=== PATIENT | male | born 1960 | race Caucasian/White ===

== ENCOUNTER 2016-06-26 10:42 | Emergency (ER) | payer OTHER ==
[~2016-06-26] VITALS: Ht 172.7 cm; Wt 105.0 kg
[~2016-06-26 10:42] MED LIST: ASPI-1061 PO; HYDR-3965 PO; LISI-622 PO; METO-323 PO; NAPR250T2 PO; OMEP10CA2 PO; SIMV40TA5 PO; TICA90TA PO
[2016-06-26 10:56] LABS: GLUCOSE,POINT OF CARE 152 MG/DL (70-110)
[2016-06-26 13:45] VITALS: BP 138/79
[2016-07-11] MEDS ORDERED: DOXY100C PO (08:39)
[2016-07-11] MEDS ORDERED: CLOP75 PO (08:39)
[2016-07-11] MEDS ORDERED: BACTDSB PO (08:39)
[2016-07-11] MEDS ORDERED: CEPH500 PO (08:39)
[2016-07-18] MEDS ORDERED: DOXY100C PO (13:38)
[2016-07-18] MEDS ORDERED: RIFA300 PO (13:38)
== END 2016-06-26 14:06 | disposition home or self-care (01) ==
LOC: EMS 10:55
DX: L60.0 Ingrowing nail (principal); I25.2 Old myocardial infarction; F15.90 Other stimulant use, unspecified, uncomplicated; Z79.82 Long term (current) use of aspirin
CPT/HCPCS: 82962; 99284

== ENCOUNTER → 2016-07-11 | Outpatient (CLI) | payer OTHER ==
[~2016-07-11] VITALS: Ht 175.3 cm; Wt 109.5 kg
[~2016-07-11] MED LIST changes: +ASPI-1093 PO; +ASPI81 PO; +BACTDSB PO; +CEPH500 PO; +CLOP75 PO; +DOXY100C PO; +IBUPROFEN 200 MG TABLET PO ONE; +LIDOCAINE HCL 4% 50 ML SOLUTION TP ONE; +LISI-661 PO; +METO-325 PO; +METO50 PO; +NYSTATIN 15 GM POWDER BOTTLE TP ONE; +RIFA300 PO; +SIMV-261 PO; +TETRACAINE/BENZOCAINE/BUTAMBEN 32 GM GEL TP ONE
[2016-07-11 08:26] VITALS: BP 104/61
== END | disposition home or self-care (01) ==
LOC: HBOWC 07:26
PROVIDERS: ATTEND Emergency Medicine
DX: T81.4XXD Infection following a procedure, subsequent encounter (principal); L97.821 Non-pressure chronic ulcer of other part of left lower leg limited to breakdown of skin; I10 Essential (primary) hypertension; I25.10 Atherosclerotic heart disease of native coronary artery without angina pectoris; E66.9 Obesity, unspecified; I25.2 Old myocardial infarction; M19.90 Unspecified osteoarthritis, unspecified site; Z87.891 Personal history of nicotine dependence; Z72.89 Other problems related to lifestyle; Y83.8 Other surgical procedures as the cause of abnormal reaction of the patient, or of later complication, without mention of misadventure at the time of the procedure
CPT/HCPCS: 11042

== ENCOUNTER → 2016-07-24 | Outpatient (CLI) | payer OTHER ==
[~2016-07-24] MED LIST changes: -BACTDSB PO; -CEPH500 PO; -HYDR-3965 PO; -IBUPROFEN 200 MG TABLET PO ONE; -LIDOCAINE HCL 4% 50 ML SOLUTION TP ONE; -NAPR250T2 PO; -NYSTATIN 15 GM POWDER BOTTLE TP ONE; -OMEP10CA2 PO; -TETRACAINE/BENZOCAINE/BUTAMBEN 32 GM GEL TP ONE; -TICA90TA PO
[2016-07-24 15:04] VITALS: BP 109/54
== END | disposition home or self-care (01) ==
LOC: HBOWC 14:45
PROVIDERS: ATTEND Emergency Medicine Undersea and Hyperbaric Medicine
DX: L97.821 Non-pressure chronic ulcer of other part of left lower leg limited to breakdown of skin (principal); L03.032 Cellulitis of left toe; B95.62 Methicillin resistant Staphylococcus aureus infection as the cause of diseases classified elsewhere; I48.91 Unspecified atrial fibrillation; B35.1 Tinea unguium; I10 Essential (primary) hypertension; E66.9 Obesity, unspecified; I25.2 Old myocardial infarction; M19.90 Unspecified osteoarthritis, unspecified site; Z87.891 Personal history of nicotine dependence; Z72.89 Other problems related to lifestyle
CPT/HCPCS: 11042

== ENCOUNTER 2016-08-07 08:54 | Inpatient (IN) | payer OTHER ==
[~2016-08-07] VITALS: Ht 172.7 cm; Wt 105.0 kg
[~2016-08-07 08:54] MED LIST changes: -ASPI-1093 PO; -ASPI81 PO; -LISI-661 PO; -METO-325 PO; -METO50 PO; -SIMV-261 PO
[2016-08-07 09:45] LABS: BASOPHILS % (AUTO) 0.8 % (0.0-2.0); EOSINOPHILS % (AUTO) 5.8 % (1.0-6.0); HEMATOCRIT 38.2 % (41-53); HEMOGLOBIN 12.2 g/dL (13.5-17.5); LYMPHOCYTES # (AUTO) 1.6 K/uL (1.0-4.8); LYMPHOCYTES % (AUTO) 19.9 % (22.0-44.0); MEAN CORPUSCULAR HEMOGLOBIN 27.3 pg (26.0-34.0); MEAN CORPUSCULAR VOLUME 85 fL (80-100); MONOCYTES # (AUTO) 0.5 K/uL (0.1-1.0); MONOCYTES % (AUTO) 6.6 % (2.0-9.0); NEUTROPHILS # (AUTO) 5.4 K/uL (1.8-7.7); NEUTROPHILS % (AUTO) 66.9 % (40.0-70.0); PLATELET COUNT (AUTO) 426 K/uL (150-450); RED BLOOD CELL COUNT(AUTO) 4.49 MIL/uL (4.50-5.90); WHITE BLOOD COUNT (AUTO) 8.1 K/uL (4.5-11.0)
[2016-08-07 09:56] LABS: ANION GAP 11 mmol/L (8-16); CALCIUM, TOTAL 8.8 mg/dL (8.8-10.5); CARBON DIOXIDE 26 mmol/L (22-29); CHLORIDE 99 mmol/L (98-107); CREATININE 0.82 mg/dL (0.60-1.30); GLOMERULAR FILTR. RATE CALC > 60 mL/min (>60); POTASSIUM 3.7 mmol/L (3.5-5.1); SODIUM SERUM 136 mmol/L (136-145); UREA NITROGEN, BLOOD 11 mg/dL (7-18)
[2016-08-07 10:00] LABS: INR 1.1 (0.9-1.1); PROTHROMBIN TIME 11.3 SEC (9.4-11.6)
[2016-08-07 10:11] LABS: B-TYPE NATRIURETIC PEPTIDE 7 pg/mL (0-100)
[2016-08-07] MEDS ORDERED: ASPIRIN 325 MG EC TABLET PO ONE (10:15)
[2016-08-07] MEDS ORDERED: NITROGLYCERIN 2% (1 GM=INCH) PACKET TP ONE (10:15)
[2016-08-07 10:20] LABS: ALANINE AMINOTRANSFERASE 17 U/L (12-78); ALBUMIN 3.3 g/dL (3.4-5.0); ASPARTATE AMINOTRANSFERASE 16 U/L (15-37); BILIRUBIN,TOTAL 0.7 mg/dL (0.1-1.0); CREATINE KINASE MB 0.5 ng/mL (0-5); CREATINE KINASE, TOTAL 104 U/L (39-308); TOTAL PROTEIN, SERUM 8.3 g/dL (6.4-8.2)
[2016-08-07 11:57] LABS: ADD UA MICROSCOPIC NO; APPEARANCE,URINE CLEAR (CLEAR); GLUCOSE, URINE (UA) NEGATIVE (NEGATIVE); KETONES,URINE NEGATIVE (NEGATIVE); LEUKOCYTE ESTERASE ,URINE NEGATIVE (NEGATIVE); OCCULT BLOOD,URINE NEGATIVE (NEGATIVE); PH,URINE 5.5 (5.0-8.0); PROTEIN,URINE NEGATIVE (NEGATIVE)
[2016-08-07] MEDS ORDERED: LISI-661 PO (12:57)
[2016-08-07] MEDS ORDERED: ONDANSETRON HCL 4 MG/2 ML VIAL IVP PRN (13:00)
[2016-08-07] MEDS ORDERED: ACETAMINOPHEN 325 MG TABLET PO PRN (13:00)
[2016-08-07] MEDS ORDERED: 0.9% SODIUM CHLORIDE 10 ML SYRINGE IVP PRN (13:00)
[2016-08-07 15:43] VITALS: BP 117/70
[2016-08-07 19:17] VITALS: BP 100/59
[2016-08-08] VITALS (14 sets, daily range): BP systolic 88–161; BP diastolic 58–89
[2016-08-08] MEDS ORDERED: ZOLPIDEM TARTRATE 5 MG TABLET PO PRN (01:45)
[2016-08-08] MEDS ORDERED: HYDROCODONE/ACETAMINOPHEN 5-325 MG TABLET PO PRN (01:45)
[2016-08-08] MEDS ORDERED: BISACODYL 10 MG RECTAL RECTAL SUPPOSITORY PR PRN (01:45)
[2016-08-08] MEDS ORDERED: ONDANSETRON HCL 4 MG/2 ML VIAL IVP PRN (01:45)
[2016-08-08] MEDS ORDERED: MORPHINE SULFATE 2 MG/ML SYRINGE IVP PRN (01:45)
[2016-08-08] MEDS ORDERED: ACETAMINOPHEN 325 MG TABLET PO PRN (01:45)
[2016-08-08] MEDS ORDERED: MAGNESIUM HYDROXIDE SUSPENSION 30 ML UDCUP PO PRN (01:45)
[2016-08-08] MEDS ORDERED: ALBUTEROL SULFATE 2.5 MG/0.5 ML NEB SOLUTION NEB PRN (01:45)
[2016-08-08] MEDS ORDERED: IPRATROPIUM BROMIDE 0.5 MG/2.5 ML NEB SOLUTION NEB PRN (01:45)
[2016-08-08] MEDS: NITROGLYCERIN 2% (1 GM=INCH) PACKET TP SCH ×3 (05:21→18:00)
[2016-08-08] MEDS: HEPARIN SODIUM,PORCINE 5,000 UNITS/ML VIAL SQ SCH ×2 (07:43→16:00)
[2016-08-08] MEDS ORDERED: LANSOPRAZOLE 30 MG SOLUBLE TABLET PO SCH (09:00)
[2016-08-08] MEDS ORDERED: CLOPIDOGREL BISULFATE 75 MG TABLET PO SCH (09:00)
[2016-08-08] MEDS ORDERED: DOCUSATE SODIUM 100 MG CAPSULE PO SCH (09:00)
[2016-08-08] MEDS ORDERED: ASPIRIN 81 MG CHEWABLE TABLET PO SCH (09:00)
[2016-08-08] MEDS ORDERED: LISINOPRIL 10 MG TABLET PO SCH (09:00)
[2016-08-08] MEDS ORDERED: PANTOPRAZOLE SODIUM 40 MG DR TABLET PO SCH (09:00)
[2016-08-08] MEDS ORDERED: LIDOCAINE HCL/PF 1% 30 ML VIAL ONE (11:49)
[2016-08-08] MEDS ORDERED: SODIUM BICARBONATE 50 MEQ/50 ML VIAL ONE (11:49)
[2016-08-08] MEDS ORDERED: HEPARIN SODIUM 1000 UNITS/NS 1,000 ML ONE (11:49)
[2016-08-08] MEDS ORDERED: IOHEXOL 300 MG/ML 150 ML VIAL ONE (11:49)
[2016-08-08] MEDS ORDERED: HEPARIN SODIUM,PORCINE 1,000 UNITS/ML 10 ML VIAL ONE (11:59)
[2016-08-08] MEDS ORDERED: IOHEXOL 300 MG/ML 100 ML VIAL ONE (11:59)
[2016-08-08] MEDS ORDERED: FentaNYL CITRATE-PF 100 MCG/2 ML VIAL ONE (12:00)
[2016-08-08] MEDS ORDERED: MIDAZOLAM HCL 2 MG/2 ML VIAL ONE (12:01)
[2016-08-08] MEDS ORDERED: VERAPAMIL HCL 2.5 MG/ML 2 ML VIAL ONE (12:01)
[2016-08-08] MEDS ORDERED: NITROGLYCERIN 50 MG/D5% WATER 0 ML ONE (12:01)
[2016-08-08] MEDS ORDERED: SODIUM CHLORIDE 0.9% 500 ML IV ONE (12:41)
[2016-08-08] MEDS ORDERED: MIDAZOLAM HCL 2 MG/2 ML VIAL IVP ONE (12:41)
[2016-08-08] MEDS ORDERED: FentaNYL CITRATE-PF 100 MCG/2 ML VIAL IVP ONE (12:41)
[2016-08-08] MEDS ORDERED: LIDOCAINE 1% 30 ML/SOD BICARB 8.4% 4 ML SQ ONE (12:43)
[2016-08-08] MEDS ORDERED: HEPARIN SODIUM 2,000 UNITS in HEPARIN SODIUM 1000 UNITS/NS 1,000 ML IARTER ONE (12:44)
[2016-08-08] MEDS ORDERED: IOHEXOL 300 MG/ML 100 ML VIAL IARTER ONE (12:46)
[2016-08-08] MEDS ORDERED: ASPI81 PO (17:36)
[2016-08-08] MEDS ORDERED: CLOP75 PO (17:36)
[2016-08-08] MEDS ORDERED: METO-325 PO (17:36)
[2016-08-08] MEDS ORDERED: SIMVASTATIN 40 MG TABLET PO SCH (21:00)
[2016-08-08] MEDS ORDERED: METOPROLOL SUCCINATE 50 MG ER TABLET PO SCH (21:00)
== END 2016-08-08 19:00 | disposition home or self-care (01) | DRG 192 ==
LOC: EMS 08:56 → 5S 14:13 → EMS 14:19 → 5N 17:20
PROVIDERS: ADMIT Hospitalist; ATTEND Internal Medicine Cardiovascular Disease
PROC: B2151ZZ Fluoroscopy of Left Heart using Low Osmolar Contrast (ICD-10-PCS; principal; 2016-08-08)
PROC: 4A023N7 Measurement of Cardiac Sampling and Pressure, Left Heart, Percutaneous Approach (ICD-10-PCS; 2016-08-08)
PROC: B2111ZZ Fluoroscopy of Multiple Coronary Arteries using Low Osmolar Contrast (ICD-10-PCS; 2016-08-08)
DX: I25.110 Atherosclerotic heart disease of native coronary artery with unstable angina pectoris (principal); I10 Essential (primary) hypertension; M06.9 Rheumatoid arthritis, unspecified; F32.9 Major depressive disorder, single episode, unspecified; I25.2 Old myocardial infarction; Z98.890 Other specified postprocedural states; Z88.8 Allergy status to other drugs, medicaments and biological substances
CPT/HCPCS: 93005; 93306; 99285; G0480; J1644; J2250; J3010; J3490; Q9967

== ENCOUNTER → 2016-08-11 | Outpatient (CLI) | payer OTHER ==
[~2016-08-11] MED LIST changes: -ASPI-1061 PO; +ASPI81 PO; -DOXY100C PO; -LISI-622 PO; +LISI-661 PO; -METO-323 PO; +METO-325 PO; -RIFA300 PO
[2016-08-11 14:43] VITALS: BP 119/78
== END | disposition home or self-care (01) ==
LOC: HBOWC 12:53
PROVIDERS: ATTEND Emergency Medicine
DX: L97.821 Non-pressure chronic ulcer of other part of left lower leg limited to breakdown of skin (principal); I10 Essential (primary) hypertension; F32.9 Major depressive disorder, single episode, unspecified; I25.2 Old myocardial infarction; M06.9 Rheumatoid arthritis, unspecified; I48.91 Unspecified atrial fibrillation; E66.9 Obesity, unspecified; Z87.891 Personal history of nicotine dependence
CPT/HCPCS: 97597

== ENCOUNTER → 2016-08-25 | Outpatient (CLI) | payer OTHER ==
[~2016-08-25] MED LIST changes: +ASPI-1093 PO; +METO50 PO; +SIMV-261 PO
[2016-08-25 10:58] VITALS: BP 121/71
== END | disposition home or self-care (01) ==
LOC: HBOWC 09:37
PROVIDERS: ATTEND Emergency Medicine
DX: L97.821 Non-pressure chronic ulcer of other part of left lower leg limited to breakdown of skin (principal); B35.1 Tinea unguium; F15.10 Other stimulant abuse, uncomplicated; B95.62 Methicillin resistant Staphylococcus aureus infection as the cause of diseases classified elsewhere; M19.90 Unspecified osteoarthritis, unspecified site; I10 Essential (primary) hypertension; F32.89 Other specified depressive episodes; I25.2 Old myocardial infarction; I48.91 Unspecified atrial fibrillation; Z87.891 Personal history of nicotine dependence
CPT/HCPCS: 97597

== ENCOUNTER → 2016-09-08 | Outpatient (CLI) | payer OTHER ==
[2016-09-08 11:49] VITALS: BP 102/59
== END | disposition home or self-care (01) ==
LOC: HBOWC 10:04
PROVIDERS: ATTEND Emergency Medicine
DX: L97.821 Non-pressure chronic ulcer of other part of left lower leg limited to breakdown of skin (principal); I25.2 Old myocardial infarction; M06.9 Rheumatoid arthritis, unspecified; I10 Essential (primary) hypertension; B35.1 Tinea unguium; I48.91 Unspecified atrial fibrillation; E66.9 Obesity, unspecified; F32.9 Major depressive disorder, single episode, unspecified; I25.10 Atherosclerotic heart disease of native coronary artery without angina pectoris; Z87.891 Personal history of nicotine dependence; Z72.89 Other problems related to lifestyle
CPT/HCPCS: 11720; 97597

== ENCOUNTER → 2016-09-25 | Outpatient (CLI) | payer OTHER ==
[~2016-09-25] MED LIST changes: -ASPI-1093 PO; -METO50 PO; -SIMV-261 PO
[2016-09-25 08:20] VITALS: BP 111/72
== END | disposition home or self-care (01) ==
LOC: HBOWC 07:59
PROVIDERS: ATTEND Emergency Medicine
DX: L97.821 Non-pressure chronic ulcer of other part of left lower leg limited to breakdown of skin (principal); F32.9 Major depressive disorder, single episode, unspecified; E66.9 Obesity, unspecified; I25.2 Old myocardial infarction; M06.9 Rheumatoid arthritis, unspecified; B35.1 Tinea unguium; I48.91 Unspecified atrial fibrillation; I10 Essential (primary) hypertension; Z72.89 Other problems related to lifestyle; Z86.14 Personal history of Methicillin resistant Staphylococcus aureus infection
CPT/HCPCS: 97597

== ENCOUNTER 2016-10-05 17:54 | Emergency (ER) | payer OTHER ==
[~2016-10-05] VITALS: Ht 172.7 cm; Wt 113.6 kg
[2016-10-05 18:45] VITALS: BP 132/80
== END 2016-10-05 19:27 | disposition home or self-care (01) ==
LOC: EMS 17:55
DX: L73.9 Follicular disorder, unspecified (principal); I25.2 Old myocardial infarction; I51.9 Heart disease, unspecified; F15.90 Other stimulant use, unspecified, uncomplicated
CPT/HCPCS: 99281

== ENCOUNTER → 2016-10-10 | Outpatient (CLI) | payer OTHER ==
[~2016-10-10] MED LIST changes: +ASPI-1093 PO; +METO50 PO; +SIMV-261 PO
[2016-10-10 08:23] VITALS: BP 140/70
== END | disposition home or self-care (01) ==
LOC: HBOWC 08:04
PROVIDERS: ATTEND Emergency Medicine Undersea and Hyperbaric Medicine
DX: L97.821 Non-pressure chronic ulcer of other part of left lower leg limited to breakdown of skin (principal); F15.10 Other stimulant abuse, uncomplicated; M86.60 Other chronic osteomyelitis, unspecified site; I25.2 Old myocardial infarction; I11.9 Hypertensive heart disease without heart failure; F32.9 Major depressive disorder, single episode, unspecified; E66.9 Obesity, unspecified; M06.9 Rheumatoid arthritis, unspecified; I48.91 Unspecified atrial fibrillation; M19.90 Unspecified osteoarthritis, unspecified site; Z86.14 Personal history of Methicillin resistant Staphylococcus aureus infection; Z72.89 Other problems related to lifestyle; Z87.891 Personal history of nicotine dependence
CPT/HCPCS: 97597

== ENCOUNTER 2016-10-13 07:03 | Emergency (ER) | payer OTHER ==
[~2016-10-13] VITALS: Ht 172.7 cm; Wt 114.5 kg
[~2016-10-13 07:03] MED LIST changes: -ASPI-1093 PO; -METO50 PO; -SIMV-261 PO
[2016-10-13] MEDS ORDERED: SIMV-261 PO (07:47)
[2016-10-13] MEDS ORDERED: ASPI-1093 PO (07:47)
[2016-10-13] MEDS ORDERED: LISI-661 PO (07:47)
[2016-10-13] MEDS ORDERED: CLOP75 PO (07:47)
[2016-10-13] MEDS ORDERED: METO50 PO (07:47)
[2016-10-13] MEDS ORDERED: LIDOCAINE HCL BUFFERED 1% 20 ML VIAL INJ ONE (08:15)
[2016-10-13 08:22] LABS: BASOPHILS % (AUTO) 0.3 % (0.0-2.0); EOSINOPHILS % (AUTO) 4.3 % (1.0-6.0); HEMATOCRIT 38.7 % (41-53); HEMOGLOBIN 12.1 g/dL (13.5-17.5); LYMPHOCYTES # (AUTO) 1.7 K/uL (1.0-4.8); LYMPHOCYTES % (AUTO) 16.5 % (22.0-44.0); MEAN CORPUSCULAR HEMOGLOBIN 25.9 pg (26.0-34.0); MEAN CORPUSCULAR HGB CONC 31.3 G/dL (31.0-37.0); MEAN CORPUSCULAR VOLUME 83 fL (80-100); MONOCYTES # (AUTO) 0.6 K/uL (0.1-1.0); MONOCYTES % (AUTO) 6.2 % (2.0-9.0); NEUTROPHILS # (AUTO) 7.3 K/uL (1.8-7.7); NEUTROPHILS % (AUTO) 72.7 % (40.0-70.0); PLATELET COUNT (AUTO) 404 K/uL (150-450); RED BLOOD CELL COUNT(AUTO) 4.68 MIL/uL (4.50-5.90); RED CELL DISTRIBUTION WIDTH 15.3 % (11.5-14.5); WHITE BLOOD COUNT (AUTO) 10.1 K/uL (4.5-11.0)
[2016-10-13] MEDS ORDERED: SULFAMETHOX/TRIMETH DS 800-160 MG/TABLET PO ONE (12:15)
[2016-10-13 12:27] VITALS: BP 128/70
== END 2016-10-13 12:38 | disposition home or self-care (01) ==
LOC: EMS 07:10
DX: S81.802A Unspecified open wound, left lower leg, initial encounter (principal); F17.210 Nicotine dependence, cigarettes, uncomplicated; F32.9 Major depressive disorder, single episode, unspecified; I25.2 Old myocardial infarction; Z79.899 Other long term (current) drug therapy; X58.XXXA Exposure to other specified factors, initial encounter; Y93.89 Activity, other specified; Y92.9 Unspecified place or not applicable; Y99.9 Unspecified external cause status
CPT/HCPCS: 36415; 85025; 96372; 99283; J3490; 99284

== ENCOUNTER → 2016-10-24 | Outpatient (CLI) | payer OTHER ==
[~2016-10-24] MED LIST changes: +ASPI-1093 PO; -ASPI81 PO; -METO-325 PO; +METO50 PO; +SIMV-261 PO; -SIMV40TA5 PO
[2016-10-24 15:12] VITALS: BP 102/46
== END | disposition home or self-care (01) ==
LOC: HBOWC 12:49
PROVIDERS: ATTEND Emergency Medicine
DX: L97.821 Non-pressure chronic ulcer of other part of left lower leg limited to breakdown of skin (principal); I25.2 Old myocardial infarction; I25.10 Atherosclerotic heart disease of native coronary artery without angina pectoris; E66.9 Obesity, unspecified; I11.0 Hypertensive heart disease with heart failure; I50.9 Heart failure, unspecified; I48.91 Unspecified atrial fibrillation; M06.9 Rheumatoid arthritis, unspecified; M86.68 Other chronic osteomyelitis, other site; Z87.891 Personal history of nicotine dependence; Z72.89 Other problems related to lifestyle
CPT/HCPCS: 97597

== ENCOUNTER 2017-08-10 09:14 | Emergency (ER) | payer MEDICAID, OTHER ==
[~2017-08-10] VITALS: Ht 175.3 cm; Wt 113.6 kg
[~2017-08-10 09:14] MED LIST changes: -ASPI-1093 PO; +ASPI-1182 PO; +BACL10TA PO
[2017-08-10 11:04] LABS: EOSINOPHILS % (AUTO) 3.2 % (1.0-6.0); HEMATOCRIT 39.2 % (41-53); LYMPHOCYTES # (AUTO) 1.7 K/uL (1.0-4.8); LYMPHOCYTES % (AUTO) 17.7 % (22.0-44.0); MEAN CORPUSCULAR HEMOGLOBIN 25.6 pg (26.0-34.0); MEAN CORPUSCULAR HGB CONC 33.1 G/dL (31.0-37.0); MEAN CORPUSCULAR VOLUME 78 fL (80-100); MONOCYTES # (AUTO) 0.9 K/uL (0.1-1.0); MONOCYTES % (AUTO) 8.8 % (2.0-9.0); NEUTROPHILS # (AUTO) 6.7 K/uL (1.8-7.7); NEUTROPHILS % (AUTO) 69.3 % (40.0-70.0); PLATELET COUNT (AUTO) 407 K/uL (150-450); RED BLOOD CELL COUNT(AUTO) 5.05 MIL/uL (4.50-5.90); RED CELL DISTRIBUTION WIDTH 17.9 % (11.5-14.5)
[2017-08-10 11:14] LABS: ANION GAP 7 mmol/L (8-16); CALCIUM, TOTAL 8.7 mg/dL (8.8-10.5); CARBON DIOXIDE 27 mmol/L (22-29); CHLORIDE 103 mmol/L (98-107); CREATININE 0.66 mg/dL (0.60-1.30); GLOMERULAR FILTR. RATE CALC > 60 mL/min (>60); GLUCOSE,RANDOM 96 mg/dL (70-110); POTASSIUM 4.1 mmol/L (3.5-5.1); SODIUM SERUM 137 mmol/L (136-145); UREA NITROGEN, BLOOD 12 mg/dL (7-18)
[2017-08-10 11:19] LABS: ALANINE AMINOTRANSFERASE 29 U/L (12-78); ALBUMIN 3.4 g/dL (3.4-5.0); ALKALINE PHOSPHATASE 109 U/L (46-116); ASPARTATE AMINOTRANSFERASE 15 U/L (15-37); BILIRUBIN,TOTAL 0.5 mg/dL (0.1-1.0); TOTAL PROTEIN, SERUM 7.8 g/dL (6.4-8.2)
[2017-08-10 12:07] VITALS: BP 115/72
== END 2017-08-10 12:58 | disposition home or self-care (01) ==
LOC: EMS 09:16
DX: K92.1 Melena (principal); R19.7 Diarrhea, unspecified; F17.210 Nicotine dependence, cigarettes, uncomplicated; F32.9 Major depressive disorder, single episode, unspecified; I25.10 Atherosclerotic heart disease of native coronary artery without angina pectoris; I25.2 Old myocardial infarction; Z79.82 Long term (current) use of aspirin; Z86.73 Personal history of transient ischemic attack (TIA), and cerebral infarction without residual deficits; Z79.899 Other long term (current) drug therapy
CPT/HCPCS: 82271; 86850; 86900; 86901; 99284

== ENCOUNTER 2017-09-03 06:53 | Emergency (ER) | payer MEDICAID ==
[~2017-09-03] VITALS: Ht 175.3 cm; Wt 97.7 kg
[2017-09-03 07:55] LABS: EOSINOPHILS % (AUTO) 11.7 % (1.0-6.0); HEMATOCRIT 38.5 % (41-53); HEMOGLOBIN 12.7 g/dL (13.5-17.5); LYMPHOCYTES # (AUTO) 1.6 K/uL (1.0-4.8); LYMPHOCYTES % (AUTO) 19.8 % (22.0-44.0); MEAN CORPUSCULAR HEMOGLOBIN 25.7 pg (26.0-34.0); MEAN CORPUSCULAR HGB CONC 32.9 G/dL (31.0-37.0); MEAN CORPUSCULAR VOLUME 78 fL (80-100); MONOCYTES # (AUTO) 0.9 K/uL (0.1-1.0); MONOCYTES % (AUTO) 11.6 % (2.0-9.0); NEUTROPHILS # (AUTO) 4.5 K/uL (1.8-7.7); NEUTROPHILS % (AUTO) 55.9 % (40.0-70.0); PLATELET COUNT (AUTO) 569 K/uL (150-450); RED BLOOD CELL COUNT(AUTO) 4.92 MIL/uL (4.50-5.90); RED CELL DISTRIBUTION WIDTH 18.4 % (11.5-14.5)
[2017-09-03 08:04] LABS: ANION GAP 9 mmol/L (8-16); CALCIUM, TOTAL 8.6 mg/dL (8.8-10.5); CARBON DIOXIDE 29 mmol/L (22-29); CHLORIDE 101 mmol/L (98-107); CREATININE 1.04 mg/dL (0.60-1.30); GLOMERULAR FILTR. RATE CALC > 60 mL/min (>60); GLUCOSE,RANDOM 131 mg/dL (70-110); POTASSIUM 3.9 mmol/L (3.5-5.1); SODIUM SERUM 139 mmol/L (136-145); UREA NITROGEN, BLOOD 11 mg/dL (7-18)
[2017-09-03 08:09] LABS: ALANINE AMINOTRANSFERASE 28 U/L (12-78); ALBUMIN 2.9 g/dL (3.4-5.0); ALKALINE PHOSPHATASE 93 U/L (46-116); ASPARTATE AMINOTRANSFERASE 18 U/L (15-37); BILIRUBIN,TOTAL 0.2 mg/dL (0.1-1.0); TOTAL PROTEIN, SERUM 7.7 g/dL (6.4-8.2)
[2017-09-03] MEDS ORDERED: CEFTAROLINE 600 MG/D5W 250 ML IV ONE (08:30)
[2017-09-03 09:11] VITALS: BP 130/72
== END 2017-09-03 10:07 | disposition home or self-care (01) ==
LOC: EMS 06:54
DX: L03.115 Cellulitis of right lower limb (principal); L03.116 Cellulitis of left lower limb; I25.2 Old myocardial infarction; F17.210 Nicotine dependence, cigarettes, uncomplicated
CPT/HCPCS: 36415; 80053; 85025; 96365; 99284; J0712

== ENCOUNTER 2017-10-01 06:11 | Emergency (ER) | payer MEDICAID, OTHER ==
[~2017-10-01] VITALS: Ht 167.6 cm; Wt 113.6 kg
[2017-10-01] MEDS ORDERED: SODIUM CHLORIDE 0.9% 1,000 ML IV ONE (07:00)
[2017-10-01] MEDS ORDERED: IOVERSOL 350 MG/ML 150 ML VIAL ONE (07:12)
[2017-10-01] MEDS ORDERED: SODIUM CHLORIDE 0.9% 100 ML ONE (07:12)
[2017-10-01 07:15] LABS: BASOPHILS % (AUTO) 1.4 % (0.0-2.0); EOSINOPHILS % (AUTO) 12.3 % (1.0-6.0); HEMATOCRIT 36.9 % (41-53); HEMOGLOBIN 12.5 g/dL (13.5-17.5); LYMPHOCYTES # (AUTO) 2.2 K/uL (1.0-4.8); MEAN CORPUSCULAR HEMOGLOBIN 26.7 pg (26.0-34.0); MEAN CORPUSCULAR VOLUME 79 fL (80-100); MONOCYTES # (AUTO) 0.8 K/uL (0.1-1.0); MONOCYTES % (AUTO) 9.3 % (2.0-9.0); NEUTROPHILS # (AUTO) 4.8 K/uL (1.8-7.7); PLATELET COUNT (AUTO) 442 K/uL (150-450)
[2017-10-01 07:24] LABS: ANION GAP 10 mmol/L (8-16); CALCIUM, TOTAL 8.5 mg/dL (8.8-10.5); CARBON DIOXIDE 27 mmol/L (22-29); CHLORIDE 101 mmol/L (98-107); CREATININE 0.92 mg/dL (0.60-1.30); GLOMERULAR FILTR. RATE CALC > 60 mL/min (>60); GLUCOSE,RANDOM 102 mg/dL (70-110); POTASSIUM 4.2 mmol/L (3.5-5.1); SODIUM SERUM 138 mmol/L (136-145); UREA NITROGEN, BLOOD 10 mg/dL (7-18)
[2017-10-01 07:31] LABS: ALANINE AMINOTRANSFERASE 27 U/L (12-78); ALBUMIN 3.1 g/dL (3.4-5.0); ALKALINE PHOSPHATASE 107 U/L (46-116); ASPARTATE AMINOTRANSFERASE 14 U/L (15-37); BILIRUBIN,TOTAL 0.6 mg/dL (0.1-1.0); LIPASE 85 U/L (73-393)
[2017-10-01 07:59] LABS: APPEARANCE,URINE CLEAR (CLEAR); BILIRUBIN,URINE NEGATIVE (NEGATIVE); GLUCOSE, URINE (UA) NEGATIVE (NEGATIVE); KETONES,URINE NEGATIVE (NEGATIVE); OCCULT BLOOD,URINE TRACE-INTA (NEGATIVE); PH,URINE 6.5 (5.0-8.0); PROTEIN,URINE NEGATIVE (NEGATIVE); UROBILINOGEN,URINE 0.2 mg/dL (<=1.0)
[2017-10-01 08:00] LABS: LEUKOCYTE ESTERASE ,URINE NEGATIVE (NEGATIVE); NITRATE,URINE NEGATIVE (NEGATIVE)
[2017-10-01 08:10] LABS: BACTERIA,URINE Rare /HPF (None Seen); RBC,URINE 0-2 /HPF (0-2); SQUAMOUS EPITHELIAL CELL,UR Rare /LPF (None Seen); WBC,URINE 0-2 /HPF (0-5)
[2017-10-01 10:00] VITALS: BP 134/81
== END 2017-10-01 11:44 | disposition home or self-care (01) ==
LOC: EMS 06:12
DX: K52.9 Noninfective gastroenteritis and colitis, unspecified (principal); I51.9 Heart disease, unspecified; I25.2 Old myocardial infarction; F17.210 Nicotine dependence, cigarettes, uncomplicated; Z86.73 Personal history of transient ischemic attack (TIA), and cerebral infarction without residual deficits
CPT/HCPCS: 36415; 74177; 80053; 81001; 83605; 83690; 85025; 96360; 99285; J7030; J7050; Q9967

== ENCOUNTER 2017-10-14 10:15 | Emergency (ER) | payer OTHER ==
[~2017-10-14] VITALS: Ht 175.3 cm; Wt 119.1 kg
[2017-10-14] MEDS ORDERED: DOXY100C PO (10:33)
[2017-10-14 10:53] VITALS: BP 109/77
== END 2017-10-14 11:29 | disposition home or self-care (01) ==
LOC: EMS 10:17
DX: L73.9 Follicular disorder, unspecified (principal); F32.9 Major depressive disorder, single episode, unspecified; I25.2 Old myocardial infarction; Z87.891 Personal history of nicotine dependence; Z86.73 Personal history of transient ischemic attack (TIA), and cerebral infarction without residual deficits
CPT/HCPCS: 99283

== ENCOUNTER 2017-12-23 11:22 | Emergency (ER) | payer OTHER ==
[~2017-12-23] VITALS: Ht 172.7 cm; Wt 120.5 kg
[~2017-12-23 11:22] MED LIST changes: -ASPI-1182 PO; -BACL10TA PO; -CLOP75 PO; +DOXY100C PO; -LISI-661 PO; -METO50 PO; -SIMV-261 PO
[2017-12-23] MEDS ORDERED: ACETAMINOPHEN 500 MG TABLET PO ONE (12:15)
[2017-12-23] MEDS ORDERED: CEPHALEXIN MONOHYDRATE 500 MG CAPSULE PO ONE (12:15)
[2017-12-23] MEDS ORDERED: SULFAMETHOX/TRIMETH DS 800-160 MG/TABLET PO ONE (12:15)
[2017-12-23 12:45] VITALS: BP 142/89
== END 2017-12-23 12:47 | disposition home or self-care (01) ==
LOC: EMS 11:22
DX: L03.116 Cellulitis of left lower limb (principal); L73.9 Follicular disorder, unspecified; I51.9 Heart disease, unspecified; I25.2 Old myocardial infarction; F32.9 Major depressive disorder, single episode, unspecified; Z86.73 Personal history of transient ischemic attack (TIA), and cerebral infarction without residual deficits; Z87.891 Personal history of nicotine dependence
CPT/HCPCS: 99284

== ENCOUNTER 2018-07-14 12:21 | Emergency (ER) | payer SELFPAY ==
[~2018-07-14] VITALS: Ht 172.7 cm; Wt 118.2 kg
[2018-07-14 14:16] LABS: BASOPHILS % (AUTO) 0.8 % (0.0-2.0); EOSINOPHILS % (AUTO) 2.2 % (1.0-6.0); HEMATOCRIT 39.6 % (41-53); LYMPHOCYTES # (AUTO) 2.3 K/uL (1.0-4.8); LYMPHOCYTES % (AUTO) 28.3 % (22.0-44.0); MEAN CORPUSCULAR HEMOGLOBIN 24.3 pg (26.0-34.0); MEAN CORPUSCULAR HGB CONC 32.9 G/dL (31.0-37.0); MEAN CORPUSCULAR VOLUME 74 fL (80-100); MONOCYTES # (AUTO) 0.9 K/uL (0.1-1.0); MONOCYTES % (AUTO) 11.2 % (2.0-9.0); NEUTROPHILS # (AUTO) 4.7 K/uL (1.8-7.7); NEUTROPHILS % (AUTO) 57.5 % (40.0-70.0); PLATELET COUNT (AUTO) 384 K/uL (150-450); RED BLOOD CELL COUNT(AUTO) 5.37 MIL/uL (4.50-5.90); RED CELL DISTRIBUTION WIDTH 18.9 % (11.5-14.5)
[2018-07-14 14:24] LABS: ANION GAP 11 mmol/L (8-16); CALCIUM, TOTAL 8.7 mg/dL (8.8-10.5); CARBON DIOXIDE 26 mmol/L (22-29); CHLORIDE 99 mmol/L (98-107); CREATININE 0.76 mg/dL (0.60-1.30); GLOMERULAR FILTR. RATE CALC > 60 mL/min (>60); GLUCOSE,RANDOM 94 mg/dL (70-110); POTASSIUM 4.4 mmol/L (3.5-5.1); SODIUM SERUM 136 mmol/L (136-145); UREA NITROGEN, BLOOD 11 mg/dL (7-18)
[2018-07-14 14:31] LABS: INR 0.9 (0.9-1.1); PROTHROMBIN TIME 9.7 SEC (9.4-11.6)
[2018-07-14 14:37] LABS: ALANINE AMINOTRANSFERASE 40 U/L (12-78); ALBUMIN 3.2 g/dL (3.4-5.0); ALKALINE PHOSPHATASE 109 U/L (46-116); ASPARTATE AMINOTRANSFERASE 30 U/L (15-37); BILIRUBIN,TOTAL 0.4 mg/dL (0.1-1.0); THYROID STIMULATING HORMONE 1.15 uIU/mL (0.36-3.74); TOTAL PROTEIN, SERUM 8.1 g/dL (6.4-8.2)
[2018-07-14 15:13] LABS: APPEARANCE,URINE CLEAR (CLEAR); BILIRUBIN,URINE NEGATIVE (NEGATIVE); GLUCOSE, URINE (UA) NEGATIVE (NEGATIVE); KETONES,URINE NEGATIVE (NEGATIVE); LEUKOCYTE ESTERASE ,URINE NEGATIVE (NEGATIVE); NITRATE,URINE NEGATIVE (NEGATIVE); OCCULT BLOOD,URINE NEGATIVE (NEGATIVE); PH,URINE 5.5 (5.0-8.0); PROTEIN,URINE NEGATIVE (NEGATIVE); UROBILINOGEN,URINE 0.2 mg/dL (<=1.0)
[2018-07-14 15:17] LABS: AMPHET/METH SCREEN,URINE NEGATIVE (NEGATIVE); BARBITURATE SCREEN, URINE NEGATIVE (NEGATIVE); BENZODIAZEPINES SCREEN,URINE NEGATIVE (NEGATIVE); CANNABINOID SCREEN,URINE NEGATIVE (NEGATIVE); COCAINE SCREEN,URINE NEGATIVE (NEGATIVE); METHADONE SCREEN, URINE NEGATIVE (NEGATIVE); OPIATE SCREEN,URINE NEGATIVE (NEGATIVE)
[2018-07-14 15:20] LABS: PHENCYCLIDINE SCREEN,URINE NEGATIVE (NEGATIVE)
[2018-07-14 15:38] LABS: BACTERIA,URINE None Seen /HPF (None Seen); RBC,URINE 0-2 /HPF (0-2); SQUAMOUS EPITHELIAL CELL,UR Rare /LPF (None Seen); WBC,URINE 0-2 /HPF (0-5)
[2018-07-14] MEDS ORDERED: KETOROLAC TROMETHAMINE 30 MG/ML VIAL IVP ONE (16:45)
[2018-07-14 16:57] VITALS: BP 126/77
== END 2018-07-14 16:56 | disposition home or self-care (01) ==
LOC: EMS 12:23
DX: S39.011A Strain of muscle, fascia and tendon of abdomen, initial encounter (principal); R42 Dizziness and giddiness; F32.9 Major depressive disorder, single episode, unspecified; I25.2 Old myocardial infarction; Z86.73 Personal history of transient ischemic attack (TIA), and cerebral infarction without residual deficits; Z88.8 Allergy status to other drugs, medicaments and biological substances; Z87.891 Personal history of nicotine dependence; X50.9XXA Other and unspecified overexertion or strenuous movements or postures, initial encounter; Y93.89 Activity, other specified; Y92.89 Other specified places as the place of occurrence of the external cause; Y99.8 Other external cause status
CPT/HCPCS: 36415; 70450; 80053; 80307; 81001; 84443; 84484; 85025; 85610; 85730; 93005; 96374; 99285; J1885

== ENCOUNTER 2019-05-31 10:34 | Emergency (ER) | payer OTHER ==
[~2019-05-31] VITALS: Ht 177.8 cm; Wt 109.1 kg
[~2019-05-31 10:34] MED LIST changes: +ASPI81 PO; -DOXY100C PO; +METF500T20 PO; +SIMV-259 PO
[2019-05-31 11:11] LABS: GLUCOSE,POINT OF CARE 97 MG/DL (70-110)
[2019-05-31] MEDS ORDERED: MORPHINE SULFATE 4 MG/ML SYRINGE IVP ONE (11:30)
[2019-05-31 12:14] LABS: ANION GAP 9 mmol/L (8-16); CALCIUM, TOTAL 8.3 mg/dL (8.8-10.5); CARBON DIOXIDE 26 mmol/L (22-29); CHLORIDE 106 mmol/L (98-107); CREATININE 0.85 mg/dL (0.60-1.30); GLOMERULAR FILTR. RATE CALC > 60 mL/min (>60); GLUCOSE,RANDOM 94 mg/dL (70-110); POTASSIUM 4.1 mmol/L (3.5-5.1); SODIUM SERUM 141 mmol/L (136-145); UREA NITROGEN, BLOOD 10 mg/dL (7-18)
[2019-05-31 12:17] LABS: BASOPHILS % (AUTO) 1.1 % (0.0-2.0); EOSINOPHILS % (AUTO) 2.2 % (1.0-6.0); HEMOGLOBIN 13.5 g/dL (13.5-17.5); MEAN CORPUSCULAR HEMOGLOBIN 26.5 pg (26.0-34.0); MEAN CORPUSCULAR HGB CONC 32.9 G/dL (31.0-37.0); MEAN CORPUSCULAR VOLUME 81 fL (80-100); MONOCYTES # (AUTO) 0.8 K/uL (0.1-1.0); MONOCYTES % (AUTO) 13.1 % (2.0-9.0); NEUTROPHILS # (AUTO) 3.4 K/uL (1.8-7.7); NEUTROPHILS % (AUTO) 52.6 % (40.0-70.0); PLATELET COUNT (AUTO) 319 K/uL (150-450); RED BLOOD CELL COUNT(AUTO) 5.07 MIL/uL (4.50-5.90); RED CELL DISTRIBUTION WIDTH 16.3 % (11.5-14.5)
[2019-05-31 12:19] LABS: ALANINE AMINOTRANSFERASE 38 U/L (12-78); ALBUMIN 3.2 g/dL (3.4-5.0); ALKALINE PHOSPHATASE 101 U/L (46-116); ASPARTATE AMINOTRANSFERASE 19 U/L (15-37); BILIRUBIN,TOTAL 0.3 mg/dL (0.1-1.0); CREATINE KINASE, TOTAL ONLY 45 U/L (39-308); TOTAL PROTEIN, SERUM 7.2 g/dL (6.4-8.2)
[2019-05-31 12:26] LABS: PROTHROMBIN TIME 10.1 SEC (9.4-11.6)
[2019-05-31 12:27] LABS: B-TYPE NATRIURETIC PEPTIDE 10 pg/mL (0-100)
[2019-05-31 12:58] LABS: PLATELET MORPHOLOGY COMMENT GIANT PLTS PRESENT
[2019-05-31] MEDS ORDERED: AZITHROMYCIN 250 MG TABLET PO ONE (13:00)
[2019-05-31 16:20] VITALS: BP 129/81
== END 2019-05-31 16:54 | disposition home or self-care (01) ==
LOC: EMS 10:35
DX: J18.9 Pneumonia, unspecified organism (principal); R07.81 Pleurodynia; I25.2 Old myocardial infarction; E11.9 Type 2 diabetes mellitus without complications; F20.9 Schizophrenia, unspecified; F32.9 Major depressive disorder, single episode, unspecified; Z86.73 Personal history of transient ischemic attack (TIA), and cerebral infarction without residual deficits; Z87.891 Personal history of nicotine dependence; Z98.890 Other specified postprocedural states; Z79.82 Long term (current) use of aspirin; Z79.899 Other long term (current) drug therapy; Z88.8 Allergy status to other drugs, medicaments and biological substances; Z79.84 Long term (current) use of oral hypoglycemic drugs
CPT/HCPCS: 36415; 71046; 80053; 82550; 82962; 83880; 84484; 85025; 85610; 85730; 93005; 96374; 99285; J2270

== ENCOUNTER 2019-12-01 21:09 | Emergency (ER) | payer OTHER ==
[~2019-12-01] VITALS: Ht 172.7 cm; Wt 142.5 kg
[~2019-12-01 21:09] MED LIST changes: +ASPI-728 PO; -ASPI81 PO; +METF-911 PO; -METF500T20 PO
[2019-12-01] MEDS ORDERED: MethylPREDNISolone SOD SUCC 125 MG/2 ML VIAL IVP ONE (22:30)
[2019-12-01] MEDS ORDERED: ALBUTEROL SULFATE HFA 90 MCG/PUFF 8 GM INHALER IH ONE (22:30)
[2019-12-01 22:39] LABS: BASOPHILS % (AUTO) 1.2 % (0.0-2.0); EOSINOPHILS % (AUTO) 3.9 % (1.0-6.0); HEMATOCRIT 43.4 % (41-53); HEMOGLOBIN 13.8 g/dL (13.5-17.5); LYMPHOCYTES # (AUTO) 2.4 K/uL (1.0-4.8); LYMPHOCYTES % (AUTO) 29.1 % (22.0-44.0); MEAN CORPUSCULAR HEMOGLOBIN 27.2 pg (26.0-34.0); MEAN CORPUSCULAR HGB CONC 31.9 G/dL (31.0-37.0); MEAN CORPUSCULAR VOLUME 85 fL (80-100); MONOCYTES % (AUTO) 12.4 % (2.0-9.0); NEUTROPHILS # (AUTO) 4.4 K/uL (1.8-7.7); NEUTROPHILS % (AUTO) 53.4 % (40.0-70.0); PLATELET COUNT (AUTO) 301 K/uL (150-450); RED BLOOD CELL COUNT(AUTO) 5.08 MIL/uL (4.50-5.90)
[2019-12-01 23:05] LABS: PROTHROMBIN TIME 10.4 SEC (9.4-11.6)
[2019-12-01 23:07] LABS: ANION GAP 7 mmol/L (8-16); APPEARANCE,URINE CLEAR (CLEAR); BILIRUBIN,URINE NEGATIVE (NEGATIVE); CALCIUM, TOTAL 8.6 mg/dL (8.8-10.5); CARBON DIOXIDE 28 mmol/L (22-29); CHLORIDE 109 mmol/L (98-107); CREATININE 0.87 mg/dL (0.60-1.30); GLOMERULAR FILTR. RATE CALC > 60 mL/min (>60); GLUCOSE, URINE (UA) NEGATIVE (NEGATIVE); GLUCOSE,RANDOM 110 mg/dL (70-110); KETONES,URINE NEGATIVE (NEGATIVE); LEUKOCYTE ESTERASE ,URINE NEGATIVE (NEGATIVE); NITRATE,URINE NEGATIVE (NEGATIVE); OCCULT BLOOD,URINE NEGATIVE (NEGATIVE); PH,URINE 6.5 (5.0-8.0); POTASSIUM 4.1 mmol/L (3.5-5.1); PROTEIN,URINE NEGATIVE (NEGATIVE); SODIUM SERUM 144 mmol/L (136-145); UREA NITROGEN, BLOOD 12 mg/dL (7-18); UROBILINOGEN,URINE 0.2 mg/dL (<=1.0)
[2019-12-01 23:08] LABS: B-TYPE NATRIURETIC PEPTIDE 5 pg/mL (0-100)
[2019-12-01 23:13] LABS: ALANINE AMINOTRANSFERASE 49 U/L (12-78); ALBUMIN 3.3 g/dL (3.4-5.0); ALKALINE PHOSPHATASE 102 U/L (46-116); ASPARTATE AMINOTRANSFERASE 22 U/L (15-37); BILIRUBIN,TOTAL 0.4 mg/dL (0.1-1.0); CREATINE KINASE, TOTAL ONLY 73 U/L (39-308); TOTAL PROTEIN, SERUM 7.9 g/dL (6.4-8.2)
[2019-12-02 00:20] VITALS: BP 115/69
== END 2019-12-02 00:25 | disposition home or self-care (01) ==
LOC: EMS 21:12
DX: J44.9 Chronic obstructive pulmonary disease, unspecified (principal); Z20.828 Contact with and (suspected) exposure to other viral communicable diseases; I11.9 Hypertensive heart disease without heart failure; F32.9 Major depressive disorder, single episode, unspecified; E11.9 Type 2 diabetes mellitus without complications; I25.2 Old myocardial infarction; Z87.891 Personal history of nicotine dependence; Z88.1 Allergy status to other antibiotic agents
CPT/HCPCS: 36415; 71045; 80053; 81003; 82550; 83880; 84484; 85025; 85610; 85730; 93005; 94640; 96374; 99285; J2930; U0003; J3535

== ENCOUNTER 2019-12-13 07:57 | Emergency (ER) | payer OTHER ==
[~2019-12-13] VITALS: Ht 167.6 cm; Wt 136.0 kg
[2019-12-13 08:12] VITALS: BP 126/68
[2019-12-13] MEDS ORDERED: FURO20TA4 PO (08:15)
[2019-12-13] MEDS ORDERED: POTA-9 PO (08:15)
[2019-12-13] MEDS ORDERED: METF-960 PO (08:15)
[2019-12-13] MEDS ORDERED: FLUP1 PO (08:15)
[2019-12-13] MEDS ORDERED: SIMV-259 PO (08:15)
[2019-12-13] MEDS ORDERED: RISP1TAB27 PO (08:15)
== END 2019-12-13 09:54 | disposition home or self-care (01) ==
LOC: EMS 07:58
DX: R05 Cough (principal); R06.02 Shortness of breath; J44.9 Chronic obstructive pulmonary disease, unspecified; E11.9 Type 2 diabetes mellitus without complications; F20.9 Schizophrenia, unspecified; I25.2 Old myocardial infarction; F32.9 Major depressive disorder, single episode, unspecified; F41.9 Anxiety disorder, unspecified; I51.9 Heart disease, unspecified; Z87.891 Personal history of nicotine dependence; Z88.8 Allergy status to other drugs, medicaments and biological substances; Z79.84 Long term (current) use of oral hypoglycemic drugs
CPT/HCPCS: 71046; 71046-TC

== ENCOUNTER 2020-01-07 09:11 | Emergency (ER) | payer OTHER ==
[~2020-01-07] VITALS: Ht 177.8 cm; Wt 122.7 kg
[~2020-01-07 09:11] MED LIST changes: -ASPI-728 PO; +FLUP1 PO; +FURO20TA4 PO; -METF-911 PO; +METF-960 PO; +POTA-9 PO; +RISP1TAB27 PO
[2020-01-07 10:48] LABS: BASOPHILS % (AUTO) 0.9 % (0.0-2.0); EOSINOPHILS % (AUTO) 2.3 % (1.0-6.0); HEMATOCRIT 42.7 % (41-53); HEMOGLOBIN 14.1 g/dL (13.5-17.5); LYMPHOCYTES # (AUTO) 1.7 K/uL (1.0-4.8); LYMPHOCYTES % (AUTO) 25.3 % (22.0-44.0); MEAN CORPUSCULAR HEMOGLOBIN 28.6 pg (26.0-34.0); MEAN CORPUSCULAR HGB CONC 33.2 G/dL (31.0-37.0); MEAN CORPUSCULAR VOLUME 86 fL (80-100); MONOCYTES # (AUTO) 0.9 K/uL (0.1-1.0); MONOCYTES % (AUTO) 14.2 % (2.0-9.0); NEUTROPHILS # (AUTO) 3.7 K/uL (1.8-7.7); NEUTROPHILS % (AUTO) 57.3 % (40.0-70.0); PLATELET COUNT (AUTO) 273 K/uL (150-450); RED BLOOD CELL COUNT(AUTO) 4.94 MIL/uL (4.50-5.90); RED CELL DISTRIBUTION WIDTH 15.9 % (11.5-14.5)
[2020-01-07 11:00] LABS: ANION GAP 5 mmol/L (8-16); CALCIUM, TOTAL 8.8 mg/dL (8.8-10.5); CARBON DIOXIDE 30 mmol/L (22-29); CHLORIDE 101 mmol/L (98-107); CREATININE 0.79 mg/dL (0.60-1.30); GLOMERULAR FILTR. RATE CALC > 60 mL/min (>60); GLUCOSE,RANDOM 113 mg/dL (70-110); POTASSIUM 3.8 mmol/L (3.5-5.1); SODIUM SERUM 136 mmol/L (136-145); UREA NITROGEN, BLOOD 10 mg/dL (7-18)
[2020-01-07 11:05] LABS: ALANINE AMINOTRANSFERASE 44 U/L (12-78); ALBUMIN 3.2 g/dL (3.4-5.0); ALKALINE PHOSPHATASE 100 U/L (46-116); ASPARTATE AMINOTRANSFERASE 17 U/L (15-37); BILIRUBIN,TOTAL 0.3 mg/dL (0.1-1.0); TOTAL PROTEIN, SERUM 7.2 g/dL (6.4-8.2)
[2020-01-07 12:01] VITALS: BP 111/69
== END 2020-01-07 12:29 | disposition home or self-care (01) ==
LOC: EMS 09:15
DX: L03.116 Cellulitis of left lower limb (principal); I11.9 Hypertensive heart disease without heart failure; I25.2 Old myocardial infarction; J45.909 Unspecified asthma, uncomplicated; F41.9 Anxiety disorder, unspecified; Z87.891 Personal history of nicotine dependence

== ENCOUNTER 2021-05-19 16:21 | Emergency (ER) | payer OTHER ==
[~2021-05-19] VITALS: Ht 170.2 cm; Wt 125.0 kg
[~2021-05-19 16:21] MED LIST changes: +ARIP15TA27 PO; +EVOL140P3 SQ; -FLUP1 PO; +MESA400C2 PO; +METF-1211 PO; -METF-960 PO; +PANT-31 PO; +POTA-10 PO; -POTA-9 PO; +PRED20 PO; -RISP1TAB27 PO; +RISP3TAB35 PO
[2021-05-19] MEDS ORDERED: GABAPENTIN 100 MG CAPSULE PO ONE (21:15)
[2021-05-19] MEDS ORDERED: KETOROLAC TROMETHAMINE 60 MG/2 ML VIAL IM ONE (21:15)
[2021-05-19] MEDS ORDERED: METHOCARBAMOL 500 MG TABLET PO ONE (21:15)
[2021-05-19 21:19] VITALS: BP 118/75
== END 2021-05-19 21:42 | disposition home or self-care (01) ==
LOC: EMS 16:23
DX: M54.42 Lumbago with sciatica, left side (principal); F41.9 Anxiety disorder, unspecified; J45.909 Unspecified asthma, uncomplicated; E11.9 Type 2 diabetes mellitus without complications; F32.9 Major depressive disorder, single episode, unspecified; I25.2 Old myocardial infarction; Z87.891 Personal history of nicotine dependence; Z88.1 Allergy status to other antibiotic agents; Z79.84 Long term (current) use of oral hypoglycemic drugs; Z79.899 Other long term (current) drug therapy
CPT/HCPCS: 96372; 99283; J1885

== ENCOUNTER 2021-06-04 09:08 | Emergency (ER) | payer OTHER ==
[~2021-06-04] VITALS: Ht 172.7 cm; Wt 125.0 kg
[2021-06-04 11:48] VITALS: BP 106/64
[2021-06-04] MEDS ORDERED: ACETAMINOPHEN 500 MG TABLET PO ONE (12:30)
[2021-06-04] MEDS ORDERED: KETOROLAC TROMETHAMINE 30 MG/ML VIAL IM ONE (12:30)
[2021-06-04] MEDS ORDERED: LIDOCAINE 5% TRANSDERMAL PATCH TD ONE (12:30)
[2021-06-04] MEDS ORDERED: IBUP-2088 PO (12:48)
[2021-06-04] MEDS ORDERED: LIDO700A15 TP (12:48)
== END 2021-06-04 13:32 | disposition home or self-care (01) ==
LOC: EMS 09:11
DX: M62.830 Muscle spasm of back (principal); E11.9 Type 2 diabetes mellitus without complications; J44.9 Chronic obstructive pulmonary disease, unspecified; F41.9 Anxiety disorder, unspecified; F32.9 Major depressive disorder, single episode, unspecified; Z88.8 Allergy status to other drugs, medicaments and biological substances; Z79.84 Long term (current) use of oral hypoglycemic drugs; Z79.899 Other long term (current) drug therapy; Z87.891 Personal history of nicotine dependence
CPT/HCPCS: 96372; 99283; J1885

== ENCOUNTER 2021-09-27 09:16 | Emergency (ER) | payer OTHER ==
[~2021-09-27] VITALS: Ht 170.2 cm; Wt 133.4 kg
[~2021-09-27 09:16] MED LIST changes: +IBUP-2088 PO; +LIDO700A15 TP; +PRED-554 PO; -PRED20 PO
[2021-09-27 09:52] VITALS: BP 117/64
[2021-09-27 10:09] LABS: BASOPHILS % (AUTO) 0.9 % (0.0-2.0); EOSINOPHILS % (AUTO) 6.2 % (1.0-6.0); HEMATOCRIT 45.9 % (41-53); HEMOGLOBIN 15.4 g/dL (13.5-17.5); LYMPHOCYTES # (AUTO) 1.6 K/uL (1.0-4.8); LYMPHOCYTES % (AUTO) 22.2 % (22.0-44.0); MEAN CORPUSCULAR HEMOGLOBIN 30.2 pg (26.0-34.0); MEAN CORPUSCULAR HGB CONC 33.6 G/dL (31.0-37.0); MEAN CORPUSCULAR VOLUME 90 fL (80-100); MONOCYTES # (AUTO) 0.5 K/uL (0.1-1.0); MONOCYTES % (AUTO) 6.4 % (2.0-9.0); NEUTROPHILS # (AUTO) 4.7 K/uL (1.8-7.7); NEUTROPHILS % (AUTO) 64.3 % (40.0-70.0); PLATELET COUNT (AUTO) 308 K/uL (150-450); RED BLOOD CELL COUNT(AUTO) 5.09 MIL/uL (4.50-5.90); RED CELL DISTRIBUTION WIDTH 13.8 % (11.5-14.5)
[2021-09-27 10:23] LABS: ANION GAP 11 mmol/L (8-16); CALCIUM, TOTAL 8.8 mg/dL (8.8-10.5); CARBON DIOXIDE 29 mmol/L (22-29); CHLORIDE 100 mmol/L (98-107); CREATININE 0.96 mg/dL (0.60-1.30); GLOMERULAR FILTR. RATE CALC > 60 mL/min (>60); GLUCOSE,RANDOM 221 mg/dL (70-110); POTASSIUM 3.8 mmol/L (3.5-5.1); SODIUM SERUM 140 mmol/L (136-145); UREA NITROGEN, BLOOD 10 mg/dL (7-18)
[2021-09-27 10:26] LABS: ALANINE AMINOTRANSFERASE 32 U/L (12-78); ALKALINE PHOSPHATASE 103 U/L (46-116); ASPARTATE AMINOTRANSFERASE 15 U/L (15-37); BILIRUBIN,TOTAL 0.6 mg/dL (0.1-1.0); LIPASE 83 U/L (73-393); TOTAL PROTEIN, SERUM 7.9 g/dL (6.4-8.2)
[2021-09-27] MEDS ORDERED: MESA400C2 PO (10:36)
== END 2021-09-27 10:54 | disposition home or self-care (01) ==
LOC: EMS 09:16
DX: K92.2 Gastrointestinal hemorrhage, unspecified (principal); F41.9 Anxiety disorder, unspecified; J45.909 Unspecified asthma, uncomplicated; J44.9 Chronic obstructive pulmonary disease, unspecified; F32.A Depression, unspecified; F20.9 Schizophrenia, unspecified; Z86.79 Personal history of other diseases of the circulatory system; Z87.19 Personal history of other diseases of the digestive system; Z98.890 Other specified postprocedural states; Z88.8 Allergy status to other drugs, medicaments and biological substances
CPT/HCPCS: 80053; 83690; 85025; 99283

== ENCOUNTER 2024-03-02 11:17 | Emergency (ER) | payer MEDICARE, OTHER ==
[~2024-03-02] VITALS: Ht 172.7 cm; Wt 103.2 kg
[~2024-03-02 11:17] MED LIST changes: +ASPI-1450 PO; +ATOR20TA65 PO; +ATOR40TA71 PO; -EVOL140P3 SQ; -FURO20TA4 PO; +FURO20TA5 PO; +HALO10TA20 PO; +HALO5TAB2 PO; -IBUP-2088 PO; -LIDO700A15 TP; +MESA1.2T3 PO; -MESA400C2 PO; -METF-1211 PO; -PANT-31 PO; -POTA-10 PO; -SIMV-259 PO
[2024-03-02 11:37] VITALS: TEMP 98.5
[2024-03-02 13:00] VITALS: BP 108/66; PULSE 74; RESP 17; O2SAT 99
[2024-03-02 13:11] LABS: BASOPHILS % (AUTO) 2.1 % (0.0-2.0); EOSINOPHILS % (AUTO) 2.1 % (1.0-6.0); HEMATOCRIT 26.4 % (41-53); HEMOGLOBIN 8.3 g/dL (13.5-17.5); LYMPHOCYTES # (AUTO) 1.6 K/uL (1.0-4.8); LYMPHOCYTES % (AUTO) 37.2 % (22.0-44.0); MEAN CORPUSCULAR HEMOGLOBIN 23.5 pg (26.0-34.0); MEAN CORPUSCULAR HGB CONC 31.4 G/dL (31.0-37.0); MEAN CORPUSCULAR VOLUME 75 fL (80-100); MONOCYTES # (AUTO) 0.7 K/uL (0.1-1.0); MONOCYTES % (AUTO) 16.9 % (2.0-9.0); NEUTROPHILS # (AUTO) 1.8 K/uL (1.8-7.7); NEUTROPHILS % (AUTO) 41.7 % (40.0-70.0); PLATELET COUNT (AUTO) 372 K/uL (150-450); RED BLOOD CELL COUNT(AUTO) 3.52 MIL/uL (4.50-5.90); WHITE BLOOD COUNT (AUTO) 4.3 K/uL (4.5-11.0)
[2024-03-02 13:23] LABS: ANION GAP 4 mmol/L (8-16); CALCIUM, TOTAL 6.8 mg/dL (8.8-10.5); CARBON DIOXIDE 27 mmol/L (22-29); CHLORIDE 106 mmol/L (98-107); CREATININE 0.81 mg/dL (0.60-1.30); GLOMERULAR FILTR. RATE CALC > 60 mL/min (>60); GLUCOSE,RANDOM 98 mg/dL (70-110); POTASSIUM 3.6 mmol/L (3.5-5.1); SODIUM SERUM 136 mmol/L (136-145); UREA NITROGEN, BLOOD 8 mg/dL (7-18)
[2024-03-02 13:24] LABS: ERYTHROCYTE SEDIMENTATION RATE 23 MM/HR (0-20)
[2024-03-02 13:30] LABS: ALANINE AMINOTRANSFERASE 6 U/L (12-78); ALBUMIN 0.7 g/dL (3.4-5.0); ALKALINE PHOSPHATASE 109 U/L (46-116); ASPARTATE AMINOTRANSFERASE 16 U/L (15-37); BILIRUBIN,DIRECT < 0.05 mg/dL (0.00-0.20); BILIRUBIN,TOTAL 0.2 mg/dL (0.1-1.0); TOTAL PROTEIN, SERUM 4.9 g/dL (6.4-8.2)
[2024-03-02 14:06] LABS: C-REACTIVE PROTEIN QUANT 1.88 mg/dL (0.00-0.30)
== END 2024-03-02 14:29 | disposition home or self-care (01) ==
LOC: EMS 11:17
DX: R21 Rash and other nonspecific skin eruption (principal); M79.89 Other specified soft tissue disorders; J44.9 Chronic obstructive pulmonary disease, unspecified; F41.9 Anxiety disorder, unspecified; E11.9 Type 2 diabetes mellitus without complications; F20.9 Schizophrenia, unspecified; F32.A Depression, unspecified; D64.9 Anemia, unspecified; Z79.52 Long term (current) use of systemic steroids; Z79.82 Long term (current) use of aspirin; Z86.73 Personal history of transient ischemic attack (TIA), and cerebral infarction without residual deficits; Z79.899 Other long term (current) drug therapy
CPT/HCPCS: 80048; 80076; 85025; 85651; 86140; 99283